=== PATIENT | male | born 1990 | race Caucasian/White ===

== ENCOUNTER 2018-01-06 15:45 | Emergency (ER) | payer BC ==
[2018-01-06] MEDS: LIDOCAINE 2% W/EPIN INJ 20ML **PRES FREE INJ (16:29)
[2018-01-06] MEDS ORDERED: ADACEL/BOOSTRIX VACCINE (DIPHTH/PERTUSS/ACELL/TETANUS)0.5ML SYR (90715) IM (17:15)
== END 2018-01-06 18:43 | disposition home or self-care (01) ==
LOC: M ED 15:45
DX: S01.00XA Unspecified open wound of scalp, initial encounter (principal)
CPT/HCPCS: 12035